=== PATIENT | female | born 1985 | race Caucasian/White ===

== ENCOUNTER 2018-01-07 18:18 | Emergency (ER) | payer MEDICAID, SELFPAY ==
[2018-01-07 18:20] VITALS: BP 113/76; PULSE 120; RESP 12; TEMP 36.8; O2SAT 96; BMI 25.2
[2018-01-07 18:50] LABS: Bedside Glucose 90 mg/dL (70-110)
--- NOTE | 2018-01-07 19:23 | ED.RN ---
at this time we are unable to obtain IV access. Spoke with Dr. Maki at this time. Plan to replace depakote PO and Obtain lab work via femeral stick
[2018-01-07 19:56] VITALS: BP 127/76; PULSE 97; RESP 16; O2SAT 100
[2018-01-07] MEDS: Divalproex Sodium 250 MG Tablet 500 MG PO (19:57)
[2018-01-07 19:59] LABS: Absolute Neutrophil Count 5.1 X10^3/uL (2.0-7.7); Basophil# 0.05 X10^3/uL; Basophil% 0.6 % (0-1); Eosinophil# 0.16 X10^3/uL; Eosinophils% 1.8 % (0-5); Hematocrit 39.2 % (37-47); Hemoglobin 12.9 g/dl (12.0-15.0); Lymphocyte % 32.2 % (19-41); Mean Corp Hgb Conc 32.9 g/gl (32-36); Mean Corpuscular Hgb 30.6 pg (27.0-32.0); Mean Corpuscular Volume 93.1 fL (81-99); Mean Platelet Vol. 9.8 fl (6.2-12.0); Monocyte# 0.83 X10^3/uL; Monocyte% 9.2 % (0-10); Neutrophil # 5.06 X10^3/uL (2.7-7.7); Platelet Count 276 K/mm3 (150-450); RBC Distribution Width CV 13.5 % (11.6-14.6); RBC Distribution Width SD 45.5 fl (35.1-43.9); Red Blood Count 4.21 M/mm3 (4.2-5.4)
[2018-01-07 20:03] LABS: Differential Indicated SCAN CRITERIA MET; POSITIVE COUNT NO; POSITIVE DIFFERENTIAL NO; POSITIVE MORPHOLOGY YES
[2018-01-07 20:15] LABS: BUN 11 mg/dL (7-18); Creatinine, Serum 0.62 mg/dL (0.55-1.02); Glucose 88 mg/dL (74-106)
[2018-01-07 20:16] LABS: Anion Gap 7 (5-15); BUN/Creat Ratio 17.7 RATIO (10-20); Calcium,Total 8.6 mg/dL (8.5-10.1); Chloride 108 mmol/L (98-107); EST Glomerular Filtration Rate 117 mL/min (>60); Est Glom Filt Rate - Afr Amer 141 mL/min (>60); Estimated Creatinine Clearance 119.69 ml/min; Potassium 4.9 mmol/L (3.5-5.1); Sodium Level 141 mmol/L (136-145)
[2018-01-07 20:27] LABS: Anisocytosis RARE; Macrocytosis RARE; Platelet Estimate ADEQUATE (ADEQ)
--- NOTE | 2018-01-07 20:58 | ED.VISSUMM ---
- ER Visit Summary Date of Service: 01/07/18 Chief Complaint: Seizure History of Present Illness: The patient is a 32 F who presents with a seizure that occurred today. Patient has a history of seizure disorders. Patient states that she has not taken her seizure medicine for the past 2-3 weeks due to inability to pay for her prescriptions. Family states patient had 5 tonic-clonic seizures today and 2 partial seizures. Family states these are typical for her seizures. Patient denies biting her tongue. Patient denies any urinary or stool incontinence. Patient states she is feeling better at this time. Patient states she just feels tired. Physical Examination: Vital signs are stable. Patient is afebrile. Patient is in no acute distress. Oral mucosa is pink and moist. Cranial nerves II through XII are intact. There are no focal motor or sensory deficits noted. Strength is 5/5 bilateral in the upper and lower extremities. There are no sensory deficits noted. Heart was regular rate and rhythm. Lungs are clear and equal bilaterally. There is good respiratory effort noted. Abdomen is soft and nontender. Bowel sounds are normal. The remaining physical exam is within normal limits. Test Results: CBC and basic metabolic profile were obtained were within normal limits. Emergency Department Course and Treatment: Patient did have one more seizure here in the emergency department. Patient was given a dose of Depakote here. Patient had no further seizures after that. Patient feels better and wants to go home. Treatment Plan: Patient was given a prescription for Depakote. Patient was instructed to follow-up with her primary care physician in 5-7 days. Patient understood and was agreeable with the plan. All questions were answered. Disposition: Discharge home Impression: Seizure disorder This note was generated with dough dictation software. It may contain incorrect words, spelling, and punctuation that were not noted in review of the chart prior to signing ED Disposition - Plan for ED Patient: Disposition: Home or Assisted Living Chief Complaint: Seizure Diagnosis: Seizure disorder Instructions: ED Seizure Recurrent Prescriptions: Divalproex Sodium [Depakote] 1,000 mg PO BID #60 tablet. Referrals: Martin Gunn [Primary Care Provider] -
--- NOTE | 2018-01-07 21:06 | ED.DCSUM_ITS ---
- ER Visit Summary Date of Service: 01/07/18 Chief Complaint: Seizure History of Present Illness: The patient is a 32 F who presents with a seizure that occurred today. Patient has a history of seizure disorders. Patient states that she has not taken her seizure medicine for the past 2-3 weeks due to inability to pay for her prescriptions. Family states patient had 5 tonic- clonic seizures today and 2 partial seizures. Family states these are typical for her seizures. Patient denies biting her tongue. Patient denies any urinary or stool incontinence. Patient states she is feeling better at this time. Patient states she just feels tired. Physical Examination: Vital signs are stable. Patient is afebrile. Patient is in no acute distress. Oral mucosa is pink and moist. Cranial nerves II through XII are intact. There are no focal motor or sensory deficits noted. Strength is 5/5 bilateral in the upper and lower extremities. There are no sensory deficits noted. Heart was regular rate and rhythm. Lungs are clear and equal bilaterally. There is good respiratory effort noted. Abdomen is soft and nontender. Bowel sounds are normal. The remaining physical exam is within normal limits. Test Results: CBC and basic metabolic profile were obtained were within normal limits. Emergency Department Course and Treatment: Patient did have one more seizure here in the emergency department. Patient was given a dose of Depakote here. Patient had no further seizures after that. Patient feels better and wants to go home. Treatment Plan: Patient was given a prescription for Depakote. Patient was instructed to follow-up with her primary care physician in 5-7 days. Patient understood and was agreeable with the plan. All questions were answered. Disposition: Discharge home Impression: Seizure disorder This note was generated with voxapp dictation software. It may contain incorrect words, spelling, and punctuation that were not noted in review of the chart prior to signing ED Disposition - Plan for ED Patient: Disposition: Home or Assisted Living Chief Complaint: Seizure Diagnosis: Seizure disorder Instructions: ED Seizure Recurrent Prescriptions: Divalproex Sodium [Depakote] 1,000 mg PO BID #60 tablet. Referrals: Martin Gunn [Primary Care Provider] -
[2018-01-07 21:20] VITALS: BP 126/70; PULSE 94; RESP 16; O2SAT 100
== END 2018-01-07 21:20 | disposition home or self-care (01) ==
PROVIDERS: Emergency Provider Emergency Medicine; Family Provider Obstetrics & Gynecology Reproductive Endocrinology; PCP Obstetrics & Gynecology Reproductive Endocrinology
DX: G40.409 Other generalized epilepsy and epileptic syndromes, not intractable, without status epilepticus (principal); T42.6X6A Underdosing of other antiepileptic and sedative-hypnotic drugs, initial encounter; Z91.120 Patient's intentional underdosing of medication regimen due to financial hardship; Y92.9 Unspecified place or not applicable; Z79.899 Other long term (current) drug therapy
CPT/HCPCS: 80048; 82962; 85025; 99285; A4216

== ENCOUNTER 2018-01-12 23:01 | Emergency (ER) | payer MEDICAID, SELFPAY ==
[2018-01-12 23:02] VITALS: BP 125/93; PULSE 89; RESP 18; TEMP 36.4; O2SAT 98; BMI 25.7
--- NOTE | 2018-01-12 23:23 | ED.VISSUMM ---
- ER Visit Summary Date of Service: 01/12/18 Chief Complaint: [] Right foot pain History of Present Illness: The patient is a 32 F [] complaining of right foot for 5 days after she was seen in this emergency department and the nursing staff had difficulty obtaining IV access and they attempted 3 times in her right foot. She reports discomfort in the forefoot. Denies fevers. Reports discomfort with ambulation. Denies rash. No other complaints at this time. Physical Examination: [] Afebrile, vital signs stable. Examination of the right foot reveals no obvious signs of cellulitis, irritation, dermatitis. Good cap refill less than 3 seconds to the affected right foot on all digits. Mild discomfort on palpation. Remainder of exam is unremarkable. Test Results: [] None. Emergency Department Course and Treatment: [] Patient is a very benign presentation. She was given one naproxen tablet and one Keflex tablet in the emergency department. Keflex is provided as a potential prophylaxis as attempted intravenous catheter placement in the lower extremities is high risk for infection. Patient was given prescriptions for Naprosyn and Keflex and encouraged to follow-up with her primary care physician. Treatment Plan: [] Outpatient antibiotics and NSAIDs. Disposition: [] Discharge, stable. Impression: [] Right foot pain, status post attempted IV catheter placement This note was generated with [employer] dictation software. It may contain incorrect words, spelling, and punctuation that were not noted in review of the chart prior to signing ED Disposition - Plan for ED Patient: Chief Complaint: Lower Extremity Injury Referrals: Martin Gunn [Primary Care Provider] -
--- NOTE | 2018-01-12 23:26 | ED.DEP ---
ED Disposition - Plan for ED Patient: Disposition: Home or Assisted Living Chief Complaint: Lower Extremity Injury Instructions: IV Catheter Site Care Prescriptions: Cephalexin [Keflex] 500 mg PO Q8 #30 cap Naproxen [Naprosyn] 500 mg PO BID PRN PRN #20 tab PRN Reason: Pain Referrals: Martin Gunn [Primary Care Provider] -
[2018-01-12] MEDS: Naproxen 500 MG Tablet PO (23:36)
[2018-01-12] MEDS: Cephalexin 250 MG Capsule 500 MG PO (23:36)
== END 2018-01-12 23:38 | disposition home or self-care (01) ==
PROVIDERS: Emergency Provider Emergency Medicine; Family Provider Obstetrics & Gynecology Reproductive Endocrinology; PCP Obstetrics & Gynecology Reproductive Endocrinology
DX: M79.671 Pain in right foot (principal); Z98.890 Other specified postprocedural states; G40.909 Epilepsy, unspecified, not intractable, without status epilepticus; Z72.0 Tobacco use; Z79.899 Other long term (current) drug therapy; Z85.9 Personal history of malignant neoplasm, unspecified
CPT/HCPCS: 99283